=== PATIENT | male | born 1940 | race Caucasian/White ===

== ENCOUNTER 2019-01-16 10:18 | Emergency (ER) | payer MEDICARE, OTHER ==
[~2019-01-16] VITALS: Ht 172.7 cm; Wt 122.5 kg
[~2019-01-16 10:18] MED LIST: KEFLEX500 MG PO; [UNRECOGNIZED DRUG - REMARK]
[2019-01-16 11:11] LABS: BASO % 0.2 % (0.0-1.0); EOS # 0.1 10*3/uL (0.0-0.4); EOS % 1.3 % (1.0-4.0); HEMATOCRIT 46.4 % (42.0-52.0); HEMOGLOBIN 15.6 g/dl (14.0-18.0); LYMPH # 2.6 10*3/uL (1.3-4.4); LYMPH % 27.8 % (27.0-41.0); MEAN CELL VOLUME 95.3 fl (80.0-94.0); MEAN CORPUSCULAR HGB CONC 33.6 g/dl (33.0-37.0); MEAN PLATELET VOLUME 10.3 fl (9.6-12.3); MONO # 0.8 10*3/uL (0.1-1.0); MONO % 8.3 % (3.0-9.0); NEUT # 5.9 10*3/uL (2.3-7.9); NEUT % 61.9 % (47.0-73.0); PLATELET COUNT AUTOMATED 169 10*3/uL (130-400); RED BLOOD COUNT 4.87 10*6/uL (4.50-5.90); RED CELL DISTRI WIDTH 12.9 % (0-14.5); WHITE BLOOD COUNT 9.5 10*3/uL (4.8-10.8)
[2019-01-16 11:24] LABS: ALBUMIN 3.7 gm/dl (3.1-4.5); ALKALINE PHOSPHATASE 32 U/L (45-117); BUN 25 mg/dl (7-24); CHLORIDE 101 mmol/L (98-107); CREATININE 1.34 mg/dL (0.70-1.30); SGOT/AST 29 IU/L (3-35); SGPT/ALT 31 U/L (12-78); SODIUM 137 mmol/L (136-145); TOTAL PROTEIN 8.6 gm/dL (6.4-8.2)
[2019-01-16 11:28] LABS: ACT PARTIAL THROMBO TIME 27.1 SECONDS (20.0-32.1)
== END 2019-01-16 12:40 | disposition home or self-care (01) ==
LOC: ED 10:18
PROVIDERS: Nurse Practitioner Family
DX: S01.411A Laceration without foreign body of right cheek and temporomandibular area, initial encounter (principal); S00.11XA Contusion of right eyelid and periocular area, initial encounter; W22.09XA Striking against other stationary object, initial encounter; Y93.01 Activity, walking, marching and hiking; Y92.098 Other place in other non-institutional residence as the place of occurrence of the external cause; Y99.8 Other external cause status

== ENCOUNTER 2024-02-19 13:47 | Emergency (ER) | payer MEDICARE, OTHER ==
[~2024-02-19] VITALS: Ht 172.7 cm; Wt 136.1 kg
[2024-02-19] MEDS ORDERED: Prochlorperazine Edisylate 10 MG/2 ML VIAL IV ONE (14:00)
[2024-02-19] MEDS ORDERED: diphenhydrAMINE hydrochloride 50 MG/ML VIAL IV ONE (14:00)
[2024-02-19 14:13] LABS: MEAN CELL VOLUME 109.4 fl (80.0-94.0); MEAN CORPUSCULAR HGB 33.5 pg (27.0-31.0); MEAN CORPUSCULAR HGB CONC 30.6 g/dl (33.0-37.0); MEAN PLATELET VOLUME 10.4 fl (9.6-12.3); NUCLEATED RED BLOOD CELL 0.4 10*3/uL (0.0-0.0); NUCLEATED RED BLOOD CELL 5.5 % (0.0-0.0); PLATELET COUNT AUTOMATED 85 10*3/uL (130-400); RED BLOOD COUNT 1.91 10*6/uL (4.50-5.90); RED CELL DISTRI WIDTH 17.7 % (0-14.5)
[2024-02-19 14:17] LABS: HEMATOCRIT 20.9 % (42.0-52.0); MANUAL DIFF REFLEX YES
[2024-02-19] MEDS ORDERED: SODIUM POLYSTYRENE SULFONATE 15 GM/60 ML BOT PO ONE (15:10)
[2024-02-19] MEDS ORDERED: SODIUM CHLORIDE 0.9% 1,000 ML IV ONE ×2 (15:10→18:35)
[2024-02-19] MEDS ORDERED: DEXTROSE 50% 25 GM/50 ML SYR IV ONE (15:10)
[2024-02-19] MEDS ORDERED: INSULIN REGULAR, HUMAN 1 UNIT/0.01 ML IV ONE (15:10)
[2024-02-19 15:11] LABS: PLATELET SUFFICIENCY LOW (NORMAL); TOTAL CELLS COUNTED 100 #CELLS
[2024-02-19] MEDS ORDERED: SODIUM CHLORIDE 0.9% 100 ML IV ONE (15:57)
[2024-02-19 17:19] LABS: BILIRUBIN Negative (Negative); BLOOD 3+ (Negative); CLARITY Cloudy (Clear); COLOR Red (Yellow); GLUCOSE Negative (Negative); KETONE Negative (Negative); LEUKO ESTERASE 2+ (Negative); NITRITE Positive (Negative); PH 5.5 (4.5-8.0)
[2024-02-19 17:21] LABS: RBC TNTC rbc/hpf (0-2)
[2024-02-19] MEDS ORDERED: LORazepam 2 MG/ML VIAL IV ONE ×2 (18:35→20:20)
== END 2024-02-19 23:01 | disposition short-term general hospital (02) ==
LOC: ED 13:47
PROVIDERS: Emergency Medicine
DX: D64.9 Anemia, unspecified (principal); N17.9 Acute kidney failure, unspecified; R31.9 Hematuria, unspecified; E87.5 Hyperkalemia; E83.51 Hypocalcemia; I10 Essential (primary) hypertension; R11.2 Nausea with vomiting, unspecified; Z85.46 Personal history of malignant neoplasm of prostate

== ENCOUNTER 2024-06-09 14:38 | Emergency (ER) | payer MEDICARE, OTHER ==
[~2024-06-09] VITALS: Ht 185.4 cm
[~2024-06-09 14:38] MED LIST changes: +AMLODIPINE BESY10 MG PO; +AMOXICILLIN500 M2 PO; +ASPIRIN ADULT L81 M1 PO; +BICALUTAMIDE50 MG PO; +CALCIUM + D SO1 EACH PO; +CALCIUM CARBON200 MG PO; +CLONIDINE HCL0.1 MG PO; +COREG25 MG PO; +ERLEADA240 MG PO; +GEMFIBROZIL600 MG PO; +GLIMEPIRIDE2 MG PO; +HYDRALAZINE HYD50 MG PO; +IMODIUM A-D2 M2 PO; +LEVOTHYROXINE200 MC2 PO; +LISINOPRIL20 MG PO; +LOPRESSOR100 M1 PO; +MULTIVITAMIN1 EACH PO; +OMEGA-31000 M1 PO; +OXYBUTYNIN5 MG PO; +ROSUVASTATIN CA20 MG PO; +Rocaltrol0.25 MCG PO; +TRAMADOL HCL50 MG PO; +VENT7GM INH; +VITAMIN D310 MC1 PO; +VITAMIN E100 UNI1 PO
[2024-06-09] MEDS ORDERED: Lidocaine Hydrochloride 10 ML SYR UR ONE (14:45)
== END 2024-06-09 15:27 | disposition home or self-care (01) ==
LOC: ED 14:38
DX: T83.9XXA Unspecified complication of genitourinary prosthetic device, implant and graft, initial encounter (principal); E78.5 Hyperlipidemia, unspecified; E03.9 Hypothyroidism, unspecified; J44.9 Chronic obstructive pulmonary disease, unspecified; I12.9 Hypertensive chronic kidney disease with stage 1 through stage 4 chronic kidney disease, or unspecified chronic kidney disease; N18.9 Chronic kidney disease, unspecified; C79.82 Secondary malignant neoplasm of genital organs; Z85.850 Personal history of malignant neoplasm of thyroid; Z87.891 Personal history of nicotine dependence; Z79.82 Long term (current) use of aspirin; Z79.899 Other long term (current) drug therapy; Z79.84 Long term (current) use of oral hypoglycemic drugs; Y84.8 Other medical procedures as the cause of abnormal reaction of the patient, or of later complication, without mention of misadventure at the time of the procedure; Y92.89 Other specified places as the place of occurrence of the external cause; Z90.89 Acquired absence of other organs; Z98.890 Other specified postprocedural states